=== PATIENT | female | born 1975 | race African-American/Black ===

== ENCOUNTER 2021-03-14 11:12 | Inpatient (IN) | payer MEDICARE ==
[~2021-03-14] VITALS: Ht 160 cm; Wt 61.4 kg
--- NOTE | ~2021-03-14 | HEMODYNAMI ---
PATIENT:JAGJIT SOLARES MEDICAL RECORD: [id number] : 77 LOCATION:[place] [address] ADMISSION DATE: 03/14/21 Generatedon:117:29 Patient name: JAGJIT SOLARES Patient #: [id number] SSN: : 1975 Date of study: 03/14/2021 Page: Of Hemodynamic Procedure Report Patient Data Patient Demographics Procedure consent was obtained First Name: JAGJIT Gender: Female Last Name: BECK : 1975 Patient #: [id number] Age: 45 year(s) Race: Black Additional ID: [id number] Contact details [address]: [address] [place] [address] State: [place] City: [place] Zip code: [address] Past Medical History Allergies Allergen Reaction Date Comments Reported Morphine 03/14/2021 Penicillins 03/14/2021 Admission Admission Data Admission Date: 03/14/2021 Admission Time: 13:06 Room #: 2127 Height (in.): 63 BSA: 1.64 (m2) Height (cm.): 160.02 BMI: 23.91 (kg/m2) Weight (lbs.): 135 Weight (kg.): 61.23 Procedure Procedure Types Cath Procedure Peripheral Cath Diagnostic Procedure Communications Controller Peripheral Procedures Fistula Mechanical Thrombectomy Procedure Description Procedure Date Procedure Date: 03/14/2021 Procedure Start Time: 15:42 Procedure Staff Name Function Noe Helm MD Performing Physician Liza Duque RT Inbound Customer Service Agent Penelope Anne RN Nurse Galen Westfall RT Scrub Procedure Data Cath Procedure Fluoroscopy Diagnostic fluoroscopy Total fluoroscopy Time: 13 time: 13 min min Diagnostic fluoroscopy Total fluoroscopy dose: 259 dose: 259 mGy mGy Contrast Material Contrast Material Type Amount (ml) Isovue 300 75 Diagnostic catheters Device Type Used For End Catheter Placement Merit Impress KA 2 5Fr 40CM catheter ([id number]) Procedure Medications Medication Administration Route Dosage Heparin Bolus I.V. 4000 units Versed I.V. 1 mg Fentanyl I.V. 50 mcg Versed I.V. 1 mg Fentanyl I.V. 50 mcg Heparin Bolus I.V. 2000 units Fentanyl I.V. 50 mcg Fentanyl I.V. 50 mcg Hemodynamics Rest BSA: 1.64 (m2) O2 Consumption: Estimated: 207.02 (ml/min) O2 Consumption indexed : Estimated:126.23 (ml/min/m) Heart Rate: 139 (bpm) Snapshots Pre Cath Intra NCS Post Cath Vital Signs Time Heart Resp SPO2 etCO2 NIBP (mmHg) Rhythm Pain Sedation Rate (ipm) (%) (mmHg) Status Level (bpm) 14:53:11 68 21 100 35.9 142/93(122) NSR 0 (11) 10(A) , No pain 14:57:25 71 17 100 33.7 142/87(125) NSR 0 (11) 10(A) , No pain 15:01:37 71 7 38.1 138/94(100) NSR 0 (11) 10(A) , No pain 15:05:47 84 31 100 33.7 142/94(123) NSR 0 (11) 10(A) , No pain 15:09:58 76 19 99 29.2 138/96(123) NSR 0 (11) 10(A) , No pain 15:14:10 70 16 100 35.2 141/87(122) NSR 0 (11) 10(A) , No pain 15:18:24 78 13 100 36.7 138/87(122) NSR 0 (11) 10(A) , No pain 15:22:36 78 14 100 34.4 141/90(118) NSR 0 (11) 10(A) , No pain 15:26:48 73 9 100 32.2 145/96(128) NSR 0 (11) 10(A) , No pain 15:31:02 71 12 100 23.9 151/88(123) NSR 0 (11) 10(A) , No pain 15:35:16 74 12 100 32.2 148/95(130) NSR 0 (11) 10(A) , No pain 15:39:30 70 10 34.4 147/94(131) NSR 0 (11) 10(A) , No pain 15:43:44 74 14 35.9 146/92(125) NSR 0 (11) 10(A) , No pain 15:47:58 77 13 31.4 141/91(126) NSR 0 (11) 10(A) , No pain 15:52:12 73 13 100 39.7 126/85(104) NSR 0 (11) 10(A) , No pain 15:56:22 80 11 99 38.9 120/80(98) NSR 0 (11) 10(A) , No pain 16:00:29 72 13 99 37.4 119/81(97) NSR 0 (11) 10(A) , No pain 16:04:31 71 11 99 23.2 128/90(122) NSR 0 (11) 10(A) , No pain 16:08:43 68 7 96 36.7 117/77(102) NSR 0 (11) 8(A) , No pain 16:12:55 76 12 98 42.7 113/68(98) NSR 0 (11) 8(A) , No pain 16:17:01 76 9 98 41.9 113/76(93) NSR 0 (11) 8(A) , No pain 16:21:07 69 10 97 40.4 116/82(100) NSR 0 (11) 8(A) , No pain 16:25:12 71 9 98 38.9 120/81(103) NSR 0 (11) 8(A) , No pain 16:29:20 75 11 100 38.2 115/80(98) NSR 0 (11) 8(A) , No pain 16:33:28 77 12 98 37.4 117/76(96) NSR 0 (11) 8(A) , No pain 16:37:34 75 12 99 37.4 126/85(101) NSR 0 (11) 8(A) , No pain 16:41:42 77 12 99 30.7 132/88(111) NSR 0 (11) 8(A) , No pain 16:45:52 73 18 37.4 140/87(112) NSR 0 (11) 10(A) , No pain 16:50:04 75 8 92 40.4 128/83(102) NSR 0 (11) 10(A) , No pain 16:54:15 77 9 96 42.7 116/77(87) NSR 0 (11) 10(A) , No pain 16:58:21 73 10 98 37.4 122/81(109) NSR 0 (11) 10(A) , No pain 17:02:31 74 26 96 35.9 128/72(92) NSR 0 (11) 10(A) , No pain 17:06:47 73 7 96 43.4 115/68(90) NSR 0 (11) 10(A) , No pain 17:10:51 67 10 96 44.2 122/85(104) NSR 0 (11) 10(A) , No pain 17:15:01 73 9 96 35.2 111/79(97) NSR 0 (11) 10(A) , No pain 17:19:05 75 13 97 31.4 121/81(112) NSR 0 (11) 10(A) , No pain 17:23:10 66 9 99 41.2 124/87(105) NSR 0 (11) 10(A) , No pain 17:27:14 68 8 99 41.2 135/95(111) NSR 0 (11) 10(A) , No pain Medications Time Medication Route Dose Verified Delivered Reason Notes Effectivene ss by by 15:45:10 Fentanyl I.V. 50 Noe Penelope for mcg Volodymyr Anne RN sedation 15:45:51 Versed I.V. 1 mg Noe Penelope for Volodymyr Anne RN sedation 15:50:51 Heparin I.V. 4000 Noe Penelope Bolus units Volodymyr Anne RN, MD 16:05:08 Versed I.V. 1 mg Noe Penelope for Volodymyr Anne RN sedation 16:05:16 Fentanyl I.V. 50 Noe Penelope for mcg Volodymyr Anne RN sedation 16:20:03 Heparin I.V. 2000 Noe Penelope Bolus units Volodymyr Anne RN, MD 16:44:38 Fentanyl I.V. 50 Noe Penelope for mcg Volodymyr Anne RN sedation 16:56:34 Fentanyl I.V. 50 Noe Penelope for mcg Volodymyr Anne RN sedation Procedure Log Time Note 14:20:38 Patient Height : 63 inches 14:20:42 Patient Weight : 135 lbs 14:21:06 Use device set IR Diagnostic 14:21:08 Tegaderm 4 x 4 (1626W) opened to sterile field. 14:21:10 Sterile Angiographic Pack opened to sterile field. 14:21:11 Bag Decanter (2002S) opened to sterile field. 14:22:02 SHEATH 6FR Bonanza (HAW951) opened to sterile field. 14:22:12 BENTSON 145cm wire ([id number]) opened to sterile field. 14:30:27 Time tracking: Regular hours (M-F 7:00 - 5:00) 14:31:11 Plan of Care:Hemodynamics will remain stable., Cardiac rhythm will remain stable., Comfort level will be maintained., Respiratory function will remain adequate., Patient/ family verbilizes understanding of procedure., Procedure tolerated without complication., Recovers from procedure without complications.. 14:31:22 Patient received from [employer] II to IR Alert and oriented. Tansferred to table in Supine position. 14:31:25 Signed procedure consent form obtained from patient. 14:31:56 H&P Date Dictated: 03/14/2021 New H&P dictated by physician.. 14:31:58 Pre-procedure instructions explained to patient. 14:31:59 Pre-procedure instructions explained to patient. 14:32:01 Pre-op teaching completed and patient verbalized understanding. 14:32:08 Family unavailable. 14:32:14 Patient NPO since Midnight. 14:32:29 Patient allergic to Morphine 14:32:35 Patient allergic to Penicillins 14:32:39 Is the patient allergic to Iodine/contrast media? No. 14:32:43 Is patient on blood thinner?No 14:32:46 Patient diabetic? No. 14:32:49 - 14:32:50 ----Pre-sedation anethsthesia assessment.---- 14:32:54 Previous problem with sedation/anesthesia? No ? 14:32:57 Snore? No 14:33:00 Sleep apnea? Yes 14:33:03 Deviated septum? No 14:33:06 Opens mouth fully? Yes 14:33:08 Sticks out tongue? Yes 14:33:25 Airway obstruction? No ? 14:33:31 Dentures? Yes out 14:33:57 Left groin area was prepped with chlora-prep and draped in sterile fashion 14:33:59 Alarms reviewed by Yaima Amin 14:34:01 - 14:34:36 Fire Safety Assessment: A--An alcohol-based skin anteseptic being used preoperatively., C--Open oxygen or nitrous oxide is being used. 14:35:03 5) <15 or on dialysis Very severe, or end stage kidney failure. 14:52:04 ECG and BP/O2 sat monitors applied to patient. 14:52:05 Vital chart was started 14:52:12 Baseline sample Acquired. 14:52:20 Full Disclosure recording started 14:52:22 - 15:36:23 SHEATH 7FR Brite Tip 35cm ([id number]) opened to sterile field. 15:42:28 Physician arrived 15::29 --------ALL STOP TIME OUT------ 15:42:29 Final Timeout: patient, procedure, and site verified with staff and physician. All members of the team are in agreement. 15:42:49 Procedure started. ::59 Local anesthetic to left femoral vein with Lidocaine 1% by Noe Helm MD.INITIAL ACCESS ONLY 15:45:10 Fentanyl 50 mcg I.V. was administered by Penelope Anne RN; for sedation ; Verbal order read back and verified. 15:45:51 Versed 1 mg I.V. was administered by Penelope Anen RN; for sedation; Verbal order read back and verified. 15:50:51 Heparin Bolus 4000 units I.V. was administered by Penelope Anne RN; ; Verbal order read back and verified. 15:51:38 ROADRUNNER .035 145 glide wire ([id number]) opened to sterile field. 15:53:02 A Merit Impress KA 2 5Fr 40CM catheter ([id number]) was advanced over the wire and used for . 15:59:08 DENSON 260 wire (M96583) opened to sterile field. 15:59:15 INFLATOR BasixTOUCH (QM2490) opened to sterile field. 15:59:51 Inflate balloon Inflation number: 1 A EVERCROSS 8 X 80 X 135 BALLOON ([id number]( was prepped and advanced across the Undefined1 , then inflated . 16:05:08 Versed 1 mg I.V. was administered by Penelope Anne RN; for sedation; Verbal order read back and verified. 16:05:16 Fentanyl 50 mcg I.V. was administered by Penelope Anne RN; for sedation ; Verbal order read back and verified. 16:12:54 Arrow 6Fr TREROTOLA thrombectomy opened to sterile field. 16:20:03 Heparin Bolus 2000 units I.V. was administered by Penelope Anne RN; ; Verbal order read back and verified. 16:34:33 Inflate balloon Inflation number: 1 A Evercross 6 x 100 x 135 Balloon ([id number]) was prepped and advanced across the Undefined2 , then inflated . 16:38:57 DENSON 260 wire (Y29509) opened to sterile field. 16:44:38 Fentanyl 50 mcg I.V. was administered by Penelope Anne RN; for sedation ; Verbal order read back and verified. 16:53:58 Inflate balloon Inflation number: 1 A Evercross 7 x 4 x 135 Balloon ([id number]) was prepped and advanced across the Undefined3 , then inflated . 16:56:34 Fentanyl 50 mcg I.V. was administered by Penelope Anne RN; for sedation ; Verbal order read back and verified. 17:01:25 Procedure ended.(Physican Out) 17:01:39 Fluoroscopy time 13.00 minutes. 17:02:05 Fluoroscopy dose: 259 mGy 17:02:05 Flurop Dose total: 259 17:02:20 Contrast amount:Isovue 300 75ml. 17:02:23 Procedure and supply charges have been captured, reviewed, submitted an d are correct. 17:05:28 Report given to Med II. 17:29:13 Vital chart was stopped Intervention Summary Intervention Notes Time ActionType Lesion and Equipment Used Action# Pressure Duration Attributes 15:59:51 Inflate Undefined1 EVERCROSS 8 X 1 0 00:00 balloon 80 X 135 BALLOON ([id number]( 16:34:33 Inflate Undefined2 Evercross 6 x 1 0 00:00 balloon 100 x 135 Balloon ([id number]) 16:53:58 Inflate Undefined3 Evercross 7 x 4 1 0 00:00 balloon x 135 Balloon ([id number]) Device Usage Item Name Manufacture Quantity Catalog Number Hospital Part Current M inimal Lot# / Charge Number Stock Stock Serial# Code Tegaderm 4 x 4 3M 1 1626W [id number] 195122 [id number] 5 (1626W) Sterile Cardinal 1 [id number] 725345 140056 5 Angiographic Health Pack Bag Decanter Microtek 1 2001S 850352 07234 711441 5 (2002S) Medical Inc. SHEATH 6FR Terumo 1 [id number] 337915 865342 318838 4 0 Bonanza (RUX106) BENTSON 145cm Cook Medical 1 [id number] 162941 751419 5 wire (Q65868) SHEATH 7FR Cardinal 1 [id number] 256216 814191 031108 1 Brite Tip 35cm Health (508132P) ROADRUNNER .035 Cook Medical 1 B38261 989384 766526 968239 5 [id number] 145 glide wire (C25860) Merit Impress Merit 1 [id number] 067719 832926 5 KA 2 5Fr 40CM Medical catheter ([id number]) DENSON 260 wire Cook Medical 1 F07854 724932 581226 763567 5 (H33862) INFLATOR Merit 1 GQ9726 019076 817169 223554 5 BasixTOAir Semiconductor Medical (BP3882) EVERCROSS 8 X Medtronic 1 [id number] 347744 392257 1 80 X 135 BALLOON ([id number]( Arrow 6Fr Teleflex 1 [id number] 277426 616045 392609 5 TREROTOLA thrombectomy Evercross 6 x Medtronic 1 [id number] 535447 707775 337699 5 100 x 135 Balloon ([id number]) Evercross 7 x 4 Medtronic 1 [id number] 002289 263897 524057 5 x 135 Balloon ([id number]) Signature Audit [place] Stage Time Signature Unsigned Intra-Procedure 03/14/2021 Liza Duque 5:29:08 PM RT(R) [facility] [address] [place] [address]
[~2021-03-14 11:12] MED LIST: COREG25 MG PO; COUMADIN5 MG PO; LIPITOR10 MG PO; LONITEN2.5 MG PO; PRILOSEC20 MG PO; RENA-VITE TABL0.8 MG PO; RESTORIL15 MG PO; TUMS500 MG PO; ZYLOPRIM100 MG PO
[2021-03-14] MEDS ORDERED: PHOSLO667 MG PO (13:22)
[2021-03-14 13:36] VITALS: BP 153/84; Ht 160 cm; Wt 61.4 kg
--- NOTE | 2021-03-14 14:19 | NUR ---
IV STARTED TO RIGHT ARM WITH 22 GAUGE CATH BY TINO CHIRINOS AND FLUSHED WITH NS. LINE IS PATENT. CONSENTS SIGNED FOR PROCEDURE. WILL CONT. PLAN OF CARE.
[2021-03-14 14:21] LABS: BASOPHILS 0.6 % (0-2); EOSINOPHILS 2.4 % (0-7); HEMATOCRIT 35.5 % (36.0-48.0); HEMOGLOBIN 11.4 g/dL (12-16); LYMPHOCYTES 25.9 % (15-50); MCH 32.1 pg (26.0-34.0); MCV 100.5 fL (80.0-100.0); MEAN PLATELET VOLUME 7.8 fL (7.4-10.4); MONOCYTES 11.6 % (2-11); NEUTROPHILS 59.5 % (40-80); PLATELET COUNT 164 10x3/uL (130-400); RBC 3.54 10x6/uL (4.00-5.40); RDW 15.6 % (11.5-14.5); WBC 4.2 10x3/uL (4.8-10.8)
[2021-03-14 14:33] LABS: ALBUMIN 4.1 g/dL (3.4-5.0); ANION GAP 19.6 mmol/L (8-16); BILIRUBIN - TOTAL 0.39 mg/dL (0.2-1.3); CALCIUM 7.3 mg/dL (8.5-10.1); CARBON DIOXIDE 25.4 mmol/L (21.0-32.0); CREATININE - SERUM 12.8 mg/dL (0.6-1.3); PROTEIN - SERUM 7.9 g/dL (6.4-8.2)
[2021-03-14 15:20] LABS: INR 1.33 (0.85-1.17); PROTIME 15.2 SECONDS (11.6-15.0)
--- NOTE | 2021-03-14 19:43 | NUR ---
RECEIVED REPORT, PT IS STILL IN DIALYSIS
[2021-03-14 23:50] VITALS: BP 135/92
--- NOTE | 2021-03-15 00:02 | NUR ---
PAGED CALLIE NIELSEN TO SEE IF WE COULD GET ORDER FOR RESTORIL, CALL BACK, SAID COULD ORDER RESTORIL 15MG AND 650 TYLENOL q4PRN
[2021-03-15 04:40] VITALS: BP 146/99
[2021-03-15 07:02] LABS: ALBUMIN 3.6 g/dL (3.4-5.0); BILIRUBIN - TOTAL 0.28 mg/dL (0.2-1.3); CALCIUM 7.6 mg/dL (8.5-10.1); CARBON DIOXIDE 28.4 mmol/L (21.0-32.0); POTASSIUM - SERUM 5.4 mmol/L (3.5-5.1); PROTEIN - SERUM 7.7 g/dL (6.4-8.2)
[2021-03-15 07:12] LABS: CREATININE - SERUM 8.9 mg/dL (0.6-1.3)
--- NOTE | 2021-03-15 07:15 | NUR ---
PT'S CALL LIGHT GOING OFF, WENT TO SEE WHAT PT NEEDED. PT ASKING FOR WASHCLOTH TO CLEAN HER FACE. PT A/O X4, RESP EVEN AND NONLABORED ON RA. RT NECK IV SL. PT DENIES ANY NEEDS AT THIS TIME. CALL LIGHT IN REACH, WILL CONTINUE PLAN OF CARE.
[2021-03-15 07:18] LABS: BASOPHILS 0.7 % (0-2); EOSINOPHILS 3.1 % (0-7); HEMATOCRIT 34.7 % (36.0-48.0); HEMOGLOBIN 11.2 g/dL (12-16); LYMPHOCYTES 22.6 % (15-50); MCH 32.4 pg (26.0-34.0); MCHC 32.4 g/dL (31.0-37.0); MCV 99.9 fL (80.0-100.0); MONOCYTES 14.6 % (2-11); PLATELET COUNT 166 10x3/uL (130-400); RBC 3.48 10x6/uL (4.00-5.40); RDW 14.9 % (11.5-14.5); WBC 3.3 10x3/uL (4.8-10.8)
[2021-03-15 08:55] VITALS: BP 140/87
--- NOTE | 2021-03-15 09:21 | NUR ---
CALLED AND UPDATED PT'S FATHER DAVID ON PLAN OF CARE AND CONDITON OF PT. ALL QUESTIONS/CONCERNS ANSWERED.
[2021-03-15 11:51] VITALS: BP 136/84
--- NOTE | 2021-03-15 13:00 | NUR ---
PT TO DIALYSIS VIA WHEELCHAIR, NOTIFIED PT'S FATHER THAT PT'S IS BEING DISCHARGE AFTER DIALYSIS.
--- NOTE | 2021-03-15 16:59 | NUR ---
PROVIDED VERBAL AND WRITTEN DISCHARGE TEACHING TO PT WHO VERBALIZED UNDERSTANDING REGARDING TEACHING. PT WAITING ON RIDE, WILL NOTIFY NURSE WHEN READY FOR WHEELCHAIR.
--- NOTE | 2021-03-15 18:36 | MORECARE ---
CASE MANAGEMENT DISCHARGE SUMMARY PATIENT: JAGJIT SOLARES UNIT: [id number] ADM DATE: 03/14/21 AGE: 45 : 77 SEX: F ROOM/BED: D.9369 AUTHOR: JAROCHO CHOPRA PHYSICIAN: REFERRING PHYSICIAN: TAMEKA AVILA MD DATE OF SERVICE: 03/15/21 Case Management Discharge Planning Summary COMMENTS ENTERED DATE: 03/15/21 18:34 CT COMMENT TYPE: Discharge Planning REVIEWER: Haresh Michele CM met with patient to complete DC plan and to evaluate needs. Patient lives independently with family. Patient reports that her father, Jessica Wilkinson, is her person to notify. Patient stated that her home is safe and has electricity and running water. Patient stated that the home has 3 steps to enter and she is able to manage the steps without difficulty. Patient stated that she has no problems paying for medications and she fills her medications at [facility]. Patient stated that her primary care physician is Dr. Bergman. At discharge, the patient plans to return home and feels this is a safe discharge. CM discussed availability of home health, rehab services, and medical equipment. Patient declined HHS, SNF, IPR, and DME. Patient voiced no other needs at this time and is satisfied with DC plan. Transportation provider at discharge will be with person. DC IMM delivered, explained, signed by the patient, and placed in chart. Signed form also left with the patient. CM will continue to follow and will assist as needed with dc plans/needs. DCP REVIEW SUMMARY ANTICIPATED D/C DATE: 03/15/2021 EXPECTED LOS : 1 CASE STATUS: DCP Initiated INITIAL REVIEW: 03/14/2021 INITIAL REVIEWER: Haresh Michele FINAL DISCHARGE DISPOSITION: : FINAL REVIEWER: FINAL REVIEW DATE: DCP Focus Questions & Answers DCP Evaluation QUESTION: ANSWER Patient gives permission to discuss discharge plans with: (name, relationship and number) : Jessica weldon, Patient's ability to cope with chronic illness : d. No chronic illness Patient's current cognitive status: : *Oriented to person, place, situation, time and present Family / Caregiver's ability to cope with chronic illness: : a. Adequate (ability to meet patient's medical needs, ensures patient attends medical appts.) Patient and/or caregiver agree upon recommended discharge plan? : Yes Physical Status: : Independent with ADL's Family / Caregiver's ability to cope with chronic illness: : a. Adequate (ability to meet patient's medical needs, ensures patient attends medical appts.) Functional screen assessment: : Basic needs can adequately be met by self Does the patient have the ability to pay for or attain post discharge needs / services? : Yes Living Arrangements: : Home with Extended Family Is there a likelihood that the patient will require additional services to return to the preadmission environment? : No Equipment needed for post hospitalization: : None Baseline cognitive status: : *Oriented to person, place, situation, time and present Patient with capacity for self-care or can be cared for in same environment as prior to hospitalization? : Yes Physical environment modification needed / anticipated for discharge: : No Medication Management: : Patient states can afford medications Medication Management: : Patient states can read and understand medication labels Pharmacy name(s): : [facility] Does Patient have transportation to get home and to follow-up medical appointments when discharged from the hospital? : Yes Would patient like to participate in any Care Coordination programs (if applicable): : Not applicable Does the patient have electricity at home? : Yes Does the patient have running water in their house? : Yes Equipment in use: : None Mental health screen: : No mental health history DCP Re-evaluation QUESTION: ANSWER Would patient like to participate in any Care Coordination programs (if applicable): : Not applicable PATIENT: JAGJIT SOLARES ENCOUNTER: [id number] MEDICAL RECORD#: [id number] ADMISSION DATE: 03/14/2021 DISCHARGE DATE: ATTENDING MD: TAMEKA ESTRADA : AGE: 45 MARITAL STATUS: S DC PLAN ID: [id number] FACILITY: [facility] PRINTED ON: 03/15/21 18:36 CT All edits/amendments must be made on the electronic document DICTATION DATE: 03/15/211834 CAN HANDLER: ALEXIA 03/15/211834 RPT#: [id number] DC DATE: STATUS: ADM IN [facility] [address] [place] [address] END OF REPORT
--- NOTE | 2021-03-15 20:32 | NUR ---
IV REMOVED FROM R.NECK, DISCHARGED HOME WITH FAMILY, TAKEN DOWN VIA WHEELCHAIR
--- NOTE | 2021-03-15 20:37 | MORECARE ---
CASE MANAGEMENT DISCHARGE SUMMARY PATIENT: JAGJIT SOLARES UNIT: [id number] ADM DATE: 03/14/21 AGE: 45 : 77 SEX: F ROOM/BED: D.9277 AUTHOR: JAROCHO CHOPRA PHYSICIAN: REFERRING PHYSICIAN: TAMEKA AVILA MD DATE OF SERVICE: 03/15/21 Case Management Discharge Planning Summary COMMENTS ENTERED DATE: 03/15/21 18:34 CT COMMENT TYPE: Discharge Planning REVIEWER: Haresh Michele CM met with patient to complete DC plan and to evaluate needs. Patient lives independently with family. Patient reports that her father, Jessica Wilkinson, is her person to notify. Patient stated that her home is safe and has electricity and running water. Patient stated that the home has 3 steps to enter and she is able to manage the steps without difficulty. Patient stated that she has no problems paying for medications and she fills her medications at [facility]. Patient stated that her primary care physician is Dr. Bergman. At discharge, the patient plans to return home and feels this is a safe discharge. CM discussed availability of home health, rehab services, and medical equipment. Patient declined HHS, SNF, IPR, and DME. Patient voiced no other needs at this time and is satisfied with DC plan. Transportation provider at discharge will be with person. DC IMM delivered, explained, signed by the patient, and placed in chart. Signed form also left with the patient. CM will continue to follow and will assist as needed with dc plans/needs. DCP REVIEW SUMMARY ANTICIPATED D/C DATE: 03/15/2021 EXPECTED LOS : 1 CASE STATUS: DCP Initiated INITIAL REVIEW: 03/14/2021 INITIAL REVIEWER: Haresh Michele FINAL DISCHARGE DISPOSITION: : FINAL REVIEWER: FINAL REVIEW DATE: DCP Focus Questions & Answers DCP Evaluation QUESTION: ANSWER Patient gives permission to discuss discharge plans with: (name, relationship and number) : Jessica weldon, Patient's ability to cope with chronic illness : d. No chronic illness Patient's current cognitive status: : *Oriented to person, place, situation, time and present Family / Caregiver's ability to cope with chronic illness: : a. Adequate (ability to meet patient's medical needs, ensures patient attends medical appts.) Patient and/or caregiver agree upon recommended discharge plan? : Yes Physical Status: : Independent with ADL's Family / Caregiver's ability to cope with chronic illness: : a. Adequate (ability to meet patient's medical needs, ensures patient attends medical appts.) Functional screen assessment: : Basic needs can adequately be met by self Does the patient have the ability to pay for or attain post discharge needs / services? : Yes Living Arrangements: : Home with Extended Family Is there a likelihood that the patient will require additional services to return to the preadmission environment? : No Equipment needed for post hospitalization: : None Baseline cognitive status: : *Oriented to person, place, situation, time and present Patient with capacity for self-care or can be cared for in same environment as prior to hospitalization? : Yes Physical environment modification needed / anticipated for discharge: : No Medication Management: : Patient states can afford medications Medication Management: : Patient states can read and understand medication labels Pharmacy name(s): : [facility] Does Patient have transportation to get home and to follow-up medical appointments when discharged from the hospital? : Yes Would patient like to participate in any Care Coordination programs (if applicable): : Not applicable Does the patient have electricity at home? : Yes Does the patient have running water in their house? : Yes Equipment in use: : None Mental health screen: : No mental health history DCP Re-evaluation QUESTION: ANSWER Would patient like to participate in any Care Coordination programs (if applicable): : Not applicable PATIENT: JAGJIT SOLARES ENCOUNTER: [id number] MEDICAL RECORD#: [id number] ADMISSION DATE: 03/14/2021 DISCHARGE DATE: 03/15/2021 ATTENDING MD: TAMEKA ESTRADA : AGE: 45 MARITAL STATUS: S DC PLAN ID: [id number] FACILITY: [facility] PRINTED ON: 03/15/21 20:37 CT All edits/amendments must be made on the electronic document DICTATION DATE: 03/15/212035 FILING OR REGISTRY CLERK: ALEXIA 03/15/212035 RPT#: [id number] DC DATE:03/15/21 STATUS: DIS IN [facility] [address] [place] [address] END OF REPORT
--- NOTE | 2021-03-17 11:59 | MORECARE ---
CASE MANAGEMENT DISCHARGE SUMMARY PATIENT: JAGJIT SOLARES UNIT: [id number] ADM DATE: 03/14/21 AGE: 45 : 77 SEX: F ROOM/BED: D.[id number] AUTHOR: JAROCHO CHOPRA PHYSICIAN: REFERRING PHYSICIAN: TAMEKA AVILA MD DATE OF SERVICE: 03/17/21 Case Management Discharge Planning Summary COMMENTS ENTERED DATE: 03/15/21 18:34 CT COMMENT TYPE: Discharge Planning REVIEWER: Haresh Michele CM met with patient to complete DC plan and to evaluate needs. Patient lives independently with family. Patient reports that her father, Jessica Wilkinson, is her person to notify. Patient stated that her home is safe and has electricity and running water. Patient stated that the home has 3 steps to enter and she is able to manage the steps without difficulty. Patient stated that she has no problems paying for medications and she fills her medications at [facility]. Patient stated that her primary care physician is Dr. Bergman. At discharge, the patient plans to return home and feels this is a safe discharge. CM discussed availability of home health, rehab services, and medical equipment. Patient declined HHS, SNF, IPR, and DME. Patient voiced no other needs at this time and is satisfied with DC plan. Transportation provider at discharge will be with person. DC IMM delivered, explained, signed by the patient, and placed in chart. Signed form also left with the patient. CM will continue to follow and will assist as needed with dc plans/needs. DCP REVIEW SUMMARY ANTICIPATED D/C DATE: 03/15/2021 EXPECTED LOS : 1 CASE STATUS: DCP Initiated INITIAL REVIEW: 03/14/2021 INITIAL REVIEWER: Haresh Michele FINAL DISCHARGE DISPOSITION: : FINAL REVIEWER: FINAL REVIEW DATE: DCP Focus Questions & Answers DCP Evaluation QUESTION: ANSWER Patient and/or caregiver agree upon recommended discharge plan? : Yes Family / Caregiver's ability to cope with chronic illness: : a. Adequate (ability to meet patient's medical needs, ensures patient attends medical appts.) Patient's current cognitive status: : *Oriented to person, place, situation, time and present Patient's ability to cope with chronic illness : d. No chronic illness Patient gives permission to discuss discharge plans with: (name, relationship and number) : fatherJessica, Does the patient have the ability to pay for or attain post discharge needs / services? : Yes Functional screen assessment: : Basic needs can adequately be met by self Family / Caregiver's ability to cope with chronic illness: : a. Adequate (ability to meet patient's medical needs, ensures patient attends medical appts.) Physical Status: : Independent with ADL's Equipment needed for post hospitalization: : None Is there a likelihood that the patient will require additional services to return to the preadmission environment? : No Living Arrangements: : Home with Extended Family Patient with capacity for self-care or can be cared for in same environment as prior to hospitalization? : Yes Baseline cognitive status: : *Oriented to person, place, situation, time and present Physical environment modification needed / anticipated for discharge: : No Medication Management: : Patient states can read and understand medication labels Medication Management: : Patient states can afford medications Pharmacy name(s): : [facility] Does Patient have transportation to get home and to follow-up medical appointments when discharged from the hospital? : Yes Would patient like to participate in any Care Coordination programs (if applicable): : Not applicable Does the patient have electricity at home? : Yes Does the patient have running water in their house? : Yes Equipment in use: : None Mental health screen: : No mental health history DCP Re-evaluation QUESTION: ANSWER Would patient like to participate in any Care Coordination programs (if applicable): : Not applicable PATIENT: JAGJIT SOLARES ENCOUNTER: [id number] MEDICAL RECORD#: [id number] ADMISSION DATE: 03/14/2021 DISCHARGE DATE: 03/15/2021 ATTENDING MD: TAMEKA ESTRADA : AGE: 45 MARITAL STATUS: S DC PLAN ID: [id number] FACILITY: [facility] PRINTED ON: 03/17/21 11:59 CT All edits/amendments must be made on the electronic document DICTATION DATE: 03/17/211158 CMA OR LPN: ALEXIA 03/17/21 115 RPT#: [id number] DC DATE:03/15/21 STATUS: DIS IN [facility] [address] [place] [address] END OF REPORT
== END 2021-03-15 20:33 | disposition home or self-care (01) | DRG 252 ==
LOC: D.M2 11:12
PROVIDERS: Radiology Diagnostic Radiology; ADMIT Internal Medicine Nephrology; ATTEND Internal Medicine Nephrology
PROC: B51W1ZZ Fluoroscopy of Dialysis Shunt/Fistula using Low Osmolar Contrast (ICD-10-PCS; 2021-03-14)
PROC: 5A1D70Z Performance of Urinary Filtration, Intermittent, Less than 6 Hours Per Day (ICD-10-PCS; 2021-03-14)
PROC: 05CY3ZZ Extirpation of Matter from Upper Vein, Percutaneous Approach (ICD-10-PCS; principal; 2021-03-14 14:30)
DX: T82.818A Embolism due to vascular prosthetic devices, implants and grafts, initial encounter (principal); N18.6 End stage renal disease; I13.2 Hypertensive heart and chronic kidney disease with heart failure and with stage 5 chronic kidney disease, or end stage renal disease; I50.30 Unspecified diastolic (congestive) heart failure; D68.59 Other primary thrombophilia; Z99.2 Dependence on renal dialysis; D63.1 Anemia in chronic kidney disease; Z86.73 Personal history of transient ischemic attack (TIA), and cerebral infarction without residual deficits